=== PATIENT | male | born 1955 | race Caucasian/White ===

== ENCOUNTER 2020-01-30 04:53 | Emergency (ER) | payer MEDICARE ==
[~2020-01-30] VITALS: Ht 177.8 cm; Wt 99.8 kg
[~2020-01-30 04:53] MED LIST: ALBUTEROL INHAL17 GM IH; AVELOX400 MG PO; CRESTOR20 MG; HYDROCHLOROTH12.5 MG; HYDROCHLOROTH12.5 MG PO; LISINOPRIL10 MG; MECLIZINE HCL25 M1 PO; MULTIVITAMINS; PAXIL 20 MG TAB20 M1; TOPROL XL25 MG PO; XANAX 0.25 MG0.25 MG PO; ZETIA10 MG
[2020-01-30] MEDS ORDERED: PRINIVIL20 M1 PO (05:02)
[2020-01-30 05:38] VITALS: BP 161/92
== END 2020-01-30 05:39 | disposition home or self-care (01) ==
LOC: M.ERS 04:53
DX: S01.81XA Laceration without foreign body of other part of head, initial encounter (principal); I10 Essential (primary) hypertension; E78.00 Pure hypercholesterolemia, unspecified; Z88.0 Allergy status to penicillin; W06.XXXA Fall from bed, initial encounter; Y93.89 Activity, other specified; Y92.89 Other specified places as the place of occurrence of the external cause; Y99.8 Other external cause status